=== PATIENT | female | born 1985 | race Caucasian/White ===

== ENCOUNTER → 2017-02-15 | Outpatient (CLI) | payer OTHER ==
[2017-02-15 12:56] LABS: Basophils # (A) 0.1 k/uL (0-0.2); Basophils % (A) 1 %; CHCM 33.6; Eosinophils # (A) 0.1 k/uL (0-0.7); Eosinophils % (A) 2 %; HCT 38.5 % (34.0-46.0); HDW 2.51; HGB 12.9 gm/dL (11.4-16.0); Luc # (Auto) 0.14; Luc % (Auto) 2; Lymphocytes # (A) 1.9 k/uL (1.0-4.8); Lymphocytes % (A) 31 %; MCHC 33.4 g/dL (31.0-37.0); MCV 83.8 fL (80.0-100.0); Monocytes # (A) 0.4 k/uL (0-1.0); Monocytes % (A) 6 %; Neutrophils # (A) 3.7 k/uL (1.3-7.7); Neutrophils % (A) 58 %; RBC 4.59 m/uL (3.80-5.40); RDW 13.1 % (11.5-15.5); WBC 6.3 k/uL (3.8-10.6); WBC (Perox) 6.36
[2017-02-15 13:02] LABS: Anion Gap 10 mmol/L; Blood Urea Nitrogen 11 mg/dL (7-17); Calcium 9.5 mg/dL (8.4-10.2); Carbon Dioxide 24 mmol/L (22-30); Chloride 106 mmol/L (98-107); Glucose 79 mg/dL (74-99); Non-African American GFR(MDRD) >60 (>60 ml/min/1.73 sqM); Potassium 3.8 mmol/L (3.5-5.1); Sodium 140 mmol/L (137-145)
== END | disposition home or self-care (01) ==
LOC: LABPAT 12:24
PROVIDERS: ATTEND Obstetrics & Gynecology
DX: Z01.812 Encounter for preprocedural laboratory examination (principal)
CPT/HCPCS: 36415; 80048; 85025

== ENCOUNTER 2017-02-25 06:01 | Observation (INO) | payer OTHER ==
[2017-02-23 15:26] VITALS: BMI 26.6
--- NOTE | 2017-02-24 16:36 | P.HPOB ---
History of Present Illness H&P Date: 02/24/17 Chief Complaint: dysmenorrhea and menorrhagia 31 year old presents for [facility] with da chandrika due to dysmenorrhea and menorrhagia. She has a known history of endometriosis. Review of Systems All systems: negative Constitutional: Denies chills, Denies fever Eyes: denies blurred vision, denies pain Ears, nose, mouth and throat: Denies headache, Denies sore throat Cardiovascular: Denies chest pain, Denies shortness of breath Respiratory: Denies cough Gastrointestinal: Denies abdominal pain, Denies diarrhea, Denies nausea, Denies vomiting Genitourinary: Denies dysuria, Denies hematuria Musculoskeletal: Denies myalgias Integumentary: Denies pruritus, Denies rash Neurological: Denies numbness, Denies weakness Psychiatric: Denies anxiety, Denies depression Endocrine: Denies fatigue, Denies weight change Past Medical History Past Medical History: Thyroid Disorder Additional Past Medical History / Comment(s): ENDOMETRIOSIS. OVARIAN CYSTS. PAINFUL, HEAVY MENSES. FREQ OM CHILD. History of Any Multi-Drug Resistant Organisms: None Reported Past Surgical History: Cholecystectomy Additional Past Surgical History / Comment(s): D&C, laparoscopy Past Anesthesia/Blood Transfusion Reactions: Family History of Problems w/ Anesthesia Additional Past Anesthesia/Blood Transfusion Reaction / Comment(s): MOTHER HAS PONV. Past Psychological History: No Psychological Hx Reported Smoking Status: Current some day smoker Past Alcohol Use History: Occasional Additional Past Alcohol Use History / Comment(s): SMOKES CIGAR OCC Past Drug Use History: None Reported - Past Family History Sister(s) Family Medical History: Cancer Medications and Allergies Home Medications Medication Instructions Recorded Confirmed Type Acetaminophen [Tylenol Extra 500 - 1,000 mg PO Q4-6H PRN 02/23/17 02/23/17 History Strength] Ibuprofen 800 mg PO Q6H PRN 02/23/17 02/23/17 History Levothyroxine Sodium [Synthroid] 88 mcg PO DAILY 02/23/17 02/23/17 History Allergies Allergy/AdvReac Type Severity Reaction Status Date / Time oseltamivir [From Tamiflu] AdvReac Abdominal Verified 02/23/17 14:57 Pain, bloody diarrhea Exam Osteopathic Statement: *. No significant issues noted on an osteopathic structural exam other than those noted in the History and Physical/Consult. Heart: RRR Lungs: CTAB Abdomen: soft, nontender Extremeties: neg ambrosio's Assessment and Plan (1) Dysmenorrhea Status: Acute (2) Menorrhagia Status: Acute Plan: 1. total laparoscopic hysterectomy with da chandrika
[~2017-02-25 06:01] MED LIST: ceFAZolin 2 GM in SODIUM CHLORIDE 0.9% 100 ML IVPB ONE
[2017-02-25] MEDS: ONDANSETRON 4 MG/2 ML VIAL IVP ONE ×2 (06:45→09:41)
[2017-02-25] MEDS ORDERED: LACTATED RINGERS 1,000 ML IV ONE ×2 (06:45→06:50)
[2017-02-25] MEDS ORDERED: DEXAMETHASONE SOD PHOSPHATE 10 MG/ML 1 ML VIAL IV ONE (06:47)
[2017-02-25] MEDS ORDERED: MIDAZOLAM 2 MG/2 ML VIAL ONE (07:14)
[2017-02-25] MEDS ORDERED: ROCURONIUM BROMIDE 10 MG/ML 10 ML VIAL IV ONE (07:14)
[2017-02-25] MEDS ORDERED: fentaNYL (PF) 50 MCG/ML 2 ML AMP ONE (07:14)
[2017-02-25] MEDS ORDERED: LIDOCAINE 1% INJ 10MG/ML (20 ML MDV) ONE (07:14)
[2017-02-25] MEDS ORDERED: HYDROmorphone (PF) 1 MG/ML ONE (07:14)
[2017-02-25] MEDS ORDERED: PROPOFOL 10 MG/ML 20 ML VIAL IV ONE (07:14)
[2017-02-25] MEDS ORDERED: NEOSTIGMINE 1 MG/ML 10 ML VIAL ONE (07:14)
[2017-02-25] MEDS ORDERED: KETOROLAC 30 MG/ML 1 ML VIAL ONE (07:14)
[2017-02-25] MEDS ORDERED: GLYCOPYRROLATE 0.2 MG/ML 2 ML VIAL ONE (07:14)
[2017-02-25] MEDS ORDERED: SUCCINYLCHOLINE CHLORIDE 100 MG/5 ML SYR IV ONE (07:14)
[2017-02-25] MEDS ORDERED: BUPIVACAINE (PF) 0.25% 30 ML VIAL SQ ONE ×2 (07:41)
--- NOTE | 2017-02-25 08:55 | P.OP ---
Date of Procedure: 02/25/17 Preoperative Diagnosis: 1. Dysmenorrhea 2. Menorrhagia Postoperative Diagnosis: 1. Dysmenorrhea 2. Menorrhagia 3. Endometrioma Procedure(s) Performed: Total laparoscopic hysterectomy with da Lissett, aspiration of bilateral ovarian cysts Implants: Anesthesia: DARIELAA Surgeon: Bonnie Velásquez Director Global #1: Osmar Neri Estimated Blood Loss (ml): 10 IV fluids (ml): 1,100 Urine output (ml): 100 Pathology: other (Uterus and cervix) Condition: stable Disposition: PACU Indications for Procedure: Operative Findings: Normal uterus, small serous cyst on the right ovary, endometrioma on the left ovary Description of Procedure: Patient taken the operating room where general anesthesia was obtained without difficulty. She is prepped and draped in normal sterile fashion dorsal lithotomy position, legs placed in the Genaro stirrups. Weighted speculum placed in the vagina and the anterior lip the cervix was grasped with single- tooth tenaculum. The uterus sounded to 10 cm and the cervix diameter was 3.5 cm. The appropriate manipulator tip and ring were placed on the Neli manipulator. The Neli manipulator was then placed in the uterus. Presley catheter was also placed. Attention was then turned to the abdomen and gloves were changed. A 5 mm supraumbilical incision was made the scalpel and a 5 mm optical trocar was placed under direct visualization. 10 cm to the right of this and 2 cm down a 5 mm incision was made and 8 mm da Lissett port was placed under direct visualization. Same measurements on the opposite side of the patient's abdomen, the 5 mm incision was made and 8 mm da Lissett port was placed under direct visualization. In the left upper quadrant a 10 mm incision was made and a 10 mm optical trocar was placed under direct visualization. The 5 mm optical trocar was then replaced with the 8 mm da Lissett camera port. The robot was docked on patient's right side. The camera was introduced and then the monopolar curved scissor and [place] bipolar placed under direct visualization. I broke scrub and went to the physician console. The left utero -ovarian ligament was cauterized with the Maryland bipolar and cut with monopolar curved scissors. The left round ligament was cauterized with the [place] bipolar and cut with monopolar curved scissors. The posterior leaf of the broad ligament was taken down using the monopolar curved scissors. Anterior leaf of the broad ligament was then taken down using the monopolar curved scissors. The uterine artery was cauterized with the Maryland bipolar and cut with monopolar curved scissors. The bladder flap was then started using the monopolar curved scissors. Attention was then turned to the right side of the patient's anatomy and the right utero-ovarian ligament was cauterized with the Maryland bipolar and cut with monopolar curved scissors. The right round ligament was cauterized with the Maryland bipolar and cut with monopolar curved scissors. Posterior leaf of the broad ligament was taken down using the monopolar curved scissors and the anterior leaf was taken down using the monopolar curved scissors. The uterine artery was cauterized the Maryland bipolar cut with monopolar curved scissors. The bladder flap was then finished on this side. Anterior colpotomy was made using the monopolar curved scissors. The rest of the uterus was from the vaginal cuff by following the ring around with the monopolar curved scissors through the uterosacral ligaments back to the anterior portion. Once the uterus and cervix were amputated they were pulled through the vaginal cuff. Hemostasis was assured. There was a small serous cyst on the right ovary that was punctured using the monopolar curved scissors. There was a large endometrioma on the left ovary that was also punctured using the monopolar curved scissors. This fluid was suctioned out. The instruments were changed for the Cardier forcep and the natalia suture cut. The vaginal cuff was then closed using O stratafix barbed suture in a running fashion. Hemostasis was again assured and the pelvis was irrigated. All instruments were removed from the abdomen and the robot was undocked. I scrubbed back in to perform a cystoscopy. There were jets from both ureteral orifices. The abdominal incisions were closed with 4-0 Vicryl in a subcuticular fashion. Patient tolerated the procedure well, sponge and instrument counts correct 2 and she was taken to recovery room in stable condition condition
[2017-02-25] MEDS: HYDROmorphone 1 MG/ML 1 ML SYRINGE IVP ONE ×2 (09:10→09:16)
[2017-02-25] MEDS ORDERED: IBUPROFEN 600 MG TAB PO PRN (09:53)
[2017-02-25] MEDS ORDERED: METOCLOPRAMIDE 5 MG/ML 2 ML VIAL IVP PRN (09:53)
[2017-02-25] MEDS ORDERED: diphenhydrAMINE 50 MG/ML 1 ML VIAL IVP PRN (09:53)
[2017-02-25] MEDS ORDERED: ONDANSETRON 4 MG/2 ML VIAL IVP PRN (09:53)
[2017-02-25] MEDS ORDERED: Acetaminophen-Codeine 300-30mg TAB PO PRN (09:53)
[2017-02-25] MEDS: Acetaminophen-Codeine 300-30mg TAB PO PRN ×3 (11:17→23:25)
[2017-02-25] MEDS: LEVOTHYROXINE 88 MCG TAB PO SCH (11:20)
[2017-02-25] MEDS: LACTATED RINGERS 1,000 ML IV SCH ×2 (11:47→20:14)
[2017-02-25] MEDS: SENNOSIDES-DOCUSATE SODIUM 1 EACH TAB PO SCH ×2 (12:46→21:03)
[2017-02-25] MEDS: KETOROLAC 30 MG/ML 1 ML VIAL IVP PRN ×2 (13:54→20:09)
[2017-02-25] MEDS: SIMETHICONE 80 MG CHEWABLE PO PRN (14:16)
[2017-02-25] MEDS ORDERED: HYDROmorphone 1 MG/ML 1 ML SYRINGE IM STA (14:23)
[2017-02-26] MEDS: LACTATED RINGERS 1,000 ML IV SCH (05:26)
[2017-02-26] MEDS: KETOROLAC 30 MG/ML 1 ML VIAL IVP PRN (05:27)
[2017-02-26] MEDS: LEVOTHYROXINE 88 MCG TAB PO SCH (06:34)
[2017-02-26 06:49] LABS: Basophils % (A) 0 %; CH 28.1; CHCM 32.8; Eosinophils # (A) 0.1 k/uL (0-0.7); Eosinophils % (A) 1 %; HDW 2.31; HGB 11.1 gm/dL (11.4-16.0); Luc # (Auto) 0.17; Luc % (Auto) 2; Lymphocytes # (A) 2.2 k/uL (1.0-4.8); Lymphocytes % (A) 22 %; MCH 28.1 pg (25.0-35.0); MCHC 32.7 g/dL (31.0-37.0); MCV 85.9 fL (80.0-100.0); Mean Platelet Volume 6.9; Monocytes # (A) 0.6 k/uL (0-1.0); Monocytes % (A) 6 %; Neutrophils # (A) 7.1 k/uL (1.3-7.7); Neutrophils % (A) 70 %; RBC 3.96 m/uL (3.80-5.40); RDW 13.5 % (11.5-15.5); WBC 10.2 k/uL (3.8-10.6); WBC (Perox) 11.11
--- NOTE | 2017-02-26 07:48 | P.DS ---
Providers Date of admission: 02/25/17 19:42 Expected date of discharge: 02/26/17 Attending physician: Bonnie Velásquez Primary care physician: Prosper Puentes - Discharge Diagnosis(es) (1) Dysmenorrhea Current Visit: Yes Status: Resolved (2) Menorrhagia Current Visit: Yes Status: Resolved (3) History of robot-assisted laparoscopic hysterectomy Current Visit: Yes Status: Acute Hospital Course: Patient presented for [facility] with da chandrika. She underwent this procedure without complication. Her postop course went very well. She is passing flatus and tolerating a regular diet. Pain is well controlled. She is ambulating and voiding without difficulty. Her incisions are C/D/I. She will be discharged home POD #1 in stable condition to follow up with me in 3 weeks. Plan - Discharge Summary New Discharge Prescriptions: New Acetaminophen-Codeine 300-30mg [Tylenol w/codeine #3] 2 each PO Q6HR PRN #30 tab PRN Reason: Severe Pain Ibuprofen [Motrin] 600 mg PO Q6HR PRN #30 tab PRN Reason: Mild Discomfort No Action Ibuprofen 800 mg PO Q6H PRN PRN Reason: Pain Levothyroxine Sodium [Synthroid] 88 mcg PO DAILY Acetaminophen [Tylenol Extra Strength] 500 - 1,000 mg PO Q4-6H PRN PRN Reason: Pain Discharge Medication List Acetaminophen [Tylenol Extra Strength] 500 - 1,000 mg PO Q4-6H PRN 02/23/17 [ History] Ibuprofen 800 mg PO Q6H PRN 02/23/17 [History] Levothyroxine Sodium [Synthroid] 88 mcg PO DAILY 02/23/17 [History] Acetaminophen-Codeine 300-30mg [Tylenol w/codeine #3] 2 each PO Q6HR PRN #30 tab 02/26/17 [Rx] Ibuprofen [Motrin] 600 mg PO Q6HR PRN #30 tab 02/26/17 [Rx] Follow up Appointment(s)/Referral(s): Bonnie Velásquez DO [Doctor of Osteopathic Medicine] - 3 Weeks
[2017-02-26] MEDS: SENNOSIDES-DOCUSATE SODIUM 1 EACH TAB PO SCH (08:21)
[2017-02-26] MEDS: Acetaminophen-Codeine 300-30mg TAB PO PRN (08:24)
[2017-02-26] MEDS: SIMETHICONE 80 MG CHEWABLE PO PRN (08:26)
[2017-02-26 08:33] VITALS: BP 121/70; PULSE 86; RESP 18; TEMP 97.4
== END 2017-02-26 10:38 | disposition home or self-care (01) ==
LOC: OR 06:01 → 6PED 08:33 → OR 19:42
PROVIDERS: ADMIT Obstetrics & Gynecology; ATTEND Obstetrics & Gynecology
DX: N92.0 Excessive and frequent menstruation with regular cycle (principal); N80.9 Endometriosis, unspecified; N83.209 Unspecified ovarian cyst, unspecified side; N94.6 Dysmenorrhea, unspecified; E07.9 Disorder of thyroid, unspecified; Z79.899 Other long term (current) drug therapy; Z90.49 Acquired absence of other specified parts of digestive tract; F17.200 Nicotine dependence, unspecified, uncomplicated
CPT/HCPCS: 58550; S2900; 81025; 85025; 86850; 86900; 86901; 88307; 88342

== ENCOUNTER 2017-03-12 22:22 | Emergency (ER) | payer OTHER ==
[2017-03-12 22:33] VITALS: RESP 18
[2017-03-12] MEDS ORDERED: SODIUM CHLORIDE 0.9% 1,000 ML IV ONE (23:56)
[2017-03-13 00:29] LABS: Basophils # (A) 0.1 k/uL (0-0.2); Basophils % (A) 1 %; CH 28.1; CHCM 33.9; Eosinophils # (A) 0.2 k/uL (0-0.7); Eosinophils % (A) 2 %; HCT 35.7 % (34.0-46.0); HDW 2.51; HGB 12.4 gm/dL (11.4-16.0); Luc # (Auto) 0.17; Luc % (Auto) 2; Lymphocytes # (A) 2.3 k/uL (1.0-4.8); Lymphocytes % (A) 30 %; MCH 28.9 pg (25.0-35.0); MCHC 34.7 g/dL (31.0-37.0); MCV 83.3 fL (80.0-100.0); Mean Platelet Volume 7.2; Monocytes # (A) 0.4 k/uL (0-1.0); Monocytes % (A) 6 %; Neutrophils # (A) 4.7 k/uL (1.3-7.7); Neutrophils % (A) 60 %; RBC 4.29 m/uL (3.80-5.40); WBC 7.9 k/uL (3.8-10.6); WBC (Perox) 8.13
[2017-03-13 00:49] LABS: ALT 26 U/L (9-52); AST 15 U/L (14-36); Alkaline Phosphatase 109 U/L (38-126); Anion Gap 12 mmol/L; Blood Urea Nitrogen 15 mg/dL (7-17); Calcium 9.8 mg/dL (8.4-10.2); Carbon Dioxide 21 mmol/L (22-30); Chloride 109 mmol/L (98-107); Glucose 86 mg/dL (74-99); Non-African American GFR(MDRD) >60 (>60 ml/min/1.73 sqM); Potassium 3.8 mmol/L (3.5-5.1); Sodium 142 mmol/L (137-145); Total Bilirubin 0.3 mg/dL (0.2-1.3); Total Protein 6.9 g/dL (6.3-8.2)
[2017-03-13 00:50] LABS: INR 1.1 (<1.1); Partial Thromboplastin Time 25.9 sec (22.0-30.0); Prothrombin Time 11.2 sec (9.0-12.0)
--- NOTE | 2017-03-13 01:11 | ED ---
Female Urogenital HPI - General Chief complaint: Vaginal Bleeding Stated complaint: vag bleed,post hysterectomy Time Seen by Provider: 03/12/17 22:48 Source: patient, RN notes reviewed, old records reviewed Mode of arrival: ambulatory Limitations: no limitations - History of Present Illness Initial comments: This is a 31 year old female 2 weeks post laproscopic hysterectomy by Dr. Velásquez with CC of passing one heavy clot today, and more significant vaginal bleeding than she has had in the past. She reports she was walking around more frequently yesterday and today. Denies any abdominal pain, denies light headedness. She did call vocational nurse lvn surgeon, whom recommended coming for evaluation of hemoglobin. - Related Data Home Medications Medication Instructions Recorded Confirmed Ibuprofen 800 mg PO Q6H PRN 02/23/17 03/12/17 Levothyroxine Sodium [Synthroid] 88 mcg PO DAILY 02/23/17 03/12/17 Allergies Allergy/AdvReac Type Severity Reaction Status Date / Time oseltamivir [From Tamiflu] AdvReac Severe Abdominal Verified 03/12/17 23:11 Pain, bloody diarrhea Review of Systems ROS Statement: Those systems with pertinent positive or pertinent negative responses have been documented in the HPI. ROS Other: All systems not noted in ROS Statement are negative. Constitutional: Denies: fever, chills Eyes: Denies: eye pain ENT: Denies: ear pain Respiratory: Denies: cough, dyspnea Cardiovascular: Denies: chest pain, palpitations Endocrine: Denies: fatigue Gastrointestinal: Denies: abdominal pain Genitourinary: Denies: urgency, dysuria Musculoskeletal: Reports: as per HPI. Denies: back pain Neurological: Denies: weakness Psychiatric: Denies: anxiety Past Medical History Past Medical History: Thyroid Disorder Additional Past Medical History / Comment(s): ENDOMETRIOSIS. OVARIAN CYSTS. FREQ OM CHILD. History of Any Multi-Drug Resistant Organisms: None Reported Past Surgical History: Cholecystectomy, Hysterectomy Additional Past Surgical History / Comment(s): D&C, laparoscopy. 02/25/2017 Robotic Hysterectomy Past Anesthesia/Blood Transfusion Reactions: Family History of Problems w/ Anesthesia Additional Past Anesthesia/Blood Transfusion Reaction / Comment(s): MOTHER HAS PONV. Past Psychological History: No Psychological Hx Reported Smoking Status: Never smoker Past Alcohol Use History: None Reported Past Drug Use History: None Reported - Past Family History Sister(s) Family Medical History: Cancer General Exam - General Exam Comments Initial Comments: Pleasant 31 year old female, no distress. Limitations: no limitations General appearance: alert, in no apparent distress Head exam: Present: atraumatic, normocephalic, normal inspection Eye exam: Present: normal appearance, PERRL, EOMI. Absent: scleral icterus, conjunctival injection, periorbital swelling ENT exam: Present: normal exam, mucous membranes moist Neck exam: Present: normal inspection. Absent: tenderness, meningismus, lymphadenopathy Respiratory exam: Present: normal lung sounds bilaterally. Absent: respiratory distress, wheezes, rales, rhonchi, stridor Cardiovascular Exam: Present: regular rate, normal rhythm, normal heart sounds. Absent: systolic murmur, diastolic murmur, rubs, gallop, clicks GI/Abdominal exam: Present: soft, normal bowel sounds. Absent: distended, tenderness, guarding, rebound, rigid External exam: Present: normal external exam Speculum exam: Present: other (Patient had tenderness with full speculum exam, no significant clots or bleeding from vaginal vault. There is some minor bleeding. ). Absent: normal speculum exam By manual exam: Absent: cervical motion tenderness, adnexal tenderness Extremities exam: Present: normal inspection, full ROM, normal capillary refill. Absent: tenderness, pedal edema, joint swelling, calf tenderness Back exam: Present: normal inspection Course Vital Signs 03/12/17 03/13/17 22:30 01:43 Temperature 97.5 F L 98.1 F Pulse Rate 83 81 Respiratory 18 18 Rate Blood Pressure 132/77 118/61 O2 Sat by Pulse 100 98 Oximetry Medical Decision Making - Medical Decision Making This is a 31 year old female 2 weeks post laproscopic hysterectomy by Dr. Velásquez with CC of passing one heavy clot today, and more significant vaginal bleeding than she has had in the past. She reports she was walking around more frequently yesterday and today. Denies any abdominal pain, denies light headedness. She did call vocational nurse lvn surgeon, whom recommended coming for evaluation of hemoglobin. Pt appears well, not pale. Hemoglobin is stable at 12.4. Patient was mildly tender with speculum exam, no significant clots or heavy bleeding noted. Disucssed follow up with BGYN and to rest and remain hydrated. Return parameters discussed. - Lab Data Result diagrams: 03/13/17 00:07 07/01/17 00:07 Lab Results 03/13/17 03/13/17 03/13/17 Range/Units 00:07 00:07 00:07 WBC 7.9 (3.8-10.6) k/uL RBC 4.29 (3.80-5.40) m/uL Hgb 12.4 (11.4-16.0) gm/dL Hct 35.7 (34.0-46.0) % MCV 83.3 (80.0-100.0) fL MCH 28.9 (25.0-35.0) pg MCHC 34.7 (31.0-37.0) g/dL RDW 13.0 (11.5-15.5) % Plt Count 334 (150-450) k/uL Neutrophils % 60 % Lymphocytes % 30 % Monocytes % 6 % Eosinophils % 2 % Basophils % 1 % Neutrophils # 4.7 (1.3-7.7) k/uL Lymphocytes # 2.3 (1.0-4.8) k/uL Monocytes # 0.4 (0-1.0) k/uL Eosinophils # 0.2 (0-0.7) k/uL Basophils # 0.1 (0-0.2) k/uL PT 11.2 (9.0-12.0) sec INR 1.1 (<1.1) APTT 25.9 (22.0-30.0) sec Sodium 142 (137-145) mmol/L Potassium 3.8 (3.5-5.1) mmol/L Chloride 109 H (98-107) mmol/L Carbon Dioxide 21 L (22-30) mmol/L Anion Gap 12 mmol/L BUN 15 (7-17) mg/dL Creatinine 0.60 (0.52-1.04) mg/dL Est GFR (MDRD) Af Amer >60 (>60 ml/min/1.73 sqM) Est GFR (MDRD) Non-Af >60 (>60 ml/min/1.73 sqM) Glucose 86 (74-99) mg/dL Calcium 9.8 (8.4-10.2) mg/dL Total Bilirubin 0.3 (0.2-1.3) mg/dL AST 15 (14-36) U/L ALT 26 (9-52) U/L Alkaline Phosphatase 109 (38-126) U/L Total Protein 6.9 (6.3-8.2) g/dL Albumin 4.2 (3.5-5.0) g/dL Disposition Clinical Impression: Vaginal bleeding, History of hysterectomy Disposition: HOME SELF-CARE Condition: Good Instructions: Menstruation (ED) Additional Instructions: Patient has a follow-up with her TRAFFIC COUNTER on Wednesday. Monitor for any signs of lightheadedness or severe further bleeding. Patient needs to rest and increase fluids. Return to the emergency department if any alarming signs or symptoms occur. Referrals: Prosper Puentes DO [Primary Care Provider] - 1-2 days Time of Disposition: 01:11
[2017-03-13 01:44] VITALS: BP 118/61; PULSE 81; TEMP 98.1
== END 2017-03-13 01:44 | disposition home or self-care (01) ==
LOC: EC 22:22
DX: N93.9 Abnormal uterine and vaginal bleeding, unspecified (principal); E07.9 Disorder of thyroid, unspecified; Z87.42 Personal history of other diseases of the female genital tract; Z90.49 Acquired absence of other specified parts of digestive tract; Z90.710 Acquired absence of both cervix and uterus; Z88.8 Allergy status to other drugs, medicaments and biological substances; Z79.899 Other long term (current) drug therapy
CPT/HCPCS: 36415; 80053; 85025; 85610; 85730; 96360; 96361; 99284

== ENCOUNTER 2024-03-12 17:00 | Emergency (ER) | payer OTHER ==
[2024-03-12 17:03] VITALS: TEMP 98
[2024-03-12] MEDS: SODIUM CHLORIDE 0.9% 1,000 ML IV STA (17:20)
[2024-03-12] MEDS: KETOROLAC 15 MG/ML 1 ML VIAL IVP STA (17:20)
[2024-03-12 17:35] VITALS: RESP 16
[2024-03-12 17:36] LABS: African American GFR (CKD) >90 (>60 ml/min/1.73 sqM); Anion Gap 4 mmol/L; Blood Urea Nitrogen 13 mg/dL (7-17); Carbon Dioxide 24 mmol/L (22-30); Chloride 109 mmol/L (98-107); Glucose 95 mg/dL (74-99); Non-African American GFR(CKD) >90 (>60 ml/min/1.73 sqM); Potassium 4.2 mmol/L (3.5-5.1); Sodium 137 mmol/L (137-145)
[2024-03-12 17:40] LABS: Appearance,Urine Cloudy (Clear); Bacteria,Urine Occasional /hpf; Bilirubin,Urine Negative (Negative); Blood,Urine Large (Negative); Color,Urine Light Red; Glucose,Urine (UA) Negative (Negative); Ketones,Urine Negative (Negative); Leukocyte Esterase,Urine Small (Negative); Mucus,Urine Few /hpf; Nitrite,Urine Negative (Negative); Protein,Urine 1+ (Negative); RBC,Urine >182 /hpf (0-5); Specific Gravity,Urine 1.024 (1.001-1.035); Squamous Epithelial Cell,Urine 13 /hpf (0-4); Urobilinogen,Urine <2.0 mg/dL (<2.0); WBC,Urine 9 /hpf (0-5)
[2024-03-12 17:43] LABS: Basophils # (A) 0.1 k/uL (0-0.2); Basophils % (A) 1 %; Eosinophils # (A) 0.2 k/uL (0-0.7); Eosinophils % (A) 2 %; HCT 39.4 % (34.0-46.0); HGB 13.6 gm/dL (11.4-16.0); Lymphocytes # (A) 2.2 k/uL (1.0-4.8); Lymphocytes % (A) 22 %; MCHC 34.6 g/dL (31.0-37.0); MCV 86.7 fL (80.0-100.0); Mean Platelet Volume 8.3; Monocytes # (A) 0.7 k/uL (0-1.0); Monocytes % (A) 7 %; Neutrophils # (A) 6.7 k/uL (1.3-7.7); Neutrophils % (A) 67 %; Platelet Count 319 k/uL (150-450); RBC 4.55 m/uL (3.80-5.40); RDW 12.6 % (11.5-15.5)
--- NOTE | 2024-03-12 18:33 | CT ---
EXAMINATION TYPE: CT abdomen pelvis wo con CT DLP: 612.7 mGycm, Automated exposure control for dose reduction was used. DATE OF EXAM: 03/12/2024 5:34 PM COMPARISON: None CLINICAL INDICATION:Female, 38 years old with history of left flank pain; Left flank pain x yesterday TECHNIQUE: Axial CT abdomen pelvis wo con;Sagittal and coronal reformats were created on a separate workstation. Contrast used: mL of , (none if empty) Oral contrast used: without Oral Contrast (none if empty) FINDINGS: LOWER CHEST: 3 mm right lower lobe pulmonary nodule. ABDOMEN LIVER: Unremarkable GALLBLADDER AND BILE DUCTS: Unremarkable. PANCREAS: Unremarkable. SPLEEN: Unremarkable. ADRENAL GLANDS: Unremarkable. KIDNEYS AND URETERS: Mild left hydronephrosis secondary obstructing 6 mm calculus at the ureteropelvi c junction. Nonobstructing right 2 mm calculus. PELVIS BLADDER: Unremarkable REPRODUCTIVE: Unremarkable. ABDOMEN & PELVIS STOMACH AND BOWEL: No evidence of bowel obstruction. Appendix is normal. PERITONEUM/RETROPERITONEUM: No evidence of pneumoperitoneum or free fluid. Mild clem mesentery. VASCULATURE: No evidence of aortic aneurysm. MUSCULOSKELETAL: No acute osseous abnormalities LYMPH NODES: No gross evidence for lymphadenopathy. SOFT TISSUE/ABDOMINAL WALL: Fat-containing umbilical hernia. IMPRESSION: 1. Mild left hydronephrosis secondary obstructing 6 mm calculus at the ureteropelvic junction. Nonob structing right renal 2 mm calculus. 2. 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 3. Right lower lobe 3 mm pulmonary nodule pulmonary nodules measuring less than 6 mm. Incidentally d etected nodules of this size are generally considered benign in individuals without concomitant risk factors such as smoking history or other risk factors for malignancy. Followup imaging is generally n ot performed, in accordance with Fleischner Society guidelines. In high-risk patients, a [address] thorax can be considered.
--- NOTE | 2024-03-12 19:00 | ED ---
General Adult HPI - General Chief complaint: Urogenital Stated complaint: blood in urine, abd pain Time Seen by Provider: 03/12/24 17:05 Source: patient, RN notes reviewed, old records reviewed Mode of arrival: ambulatory Limitations: no limitations - History of Present Illness Initial comments: Patient is a 38-year-old female presents emergency department complaining of left-sided lower back and flank pain. Is also noticed some hematuria. Symptoms started yesterday. No significant nausea. No history of kidney stone. History of hysterectomy. States she is not . Denies any change in stooling. Denies any chest pain or shortness of breath. Denies any fevers. Presents for further evaluation at this time. States the pain radiates from her left lower back around her flank towards her groin. - Related Data Home Medications Medication Instructions Recorded Confirmed Ibuprofen 800 mg PO Q6H PRN 02/23/17 03/12/17 Levothyroxine Sodium [Synthroid] 88 mcg PO DAILY 02/23/17 03/12/17 Previous Rx's Medication Instructions Recorded Tamsulosin [Flomax] 0.4 mg PO DAILY 14 Days #14 cap 03/12/24 Allergies Allergy/AdvReac Type Severity Reaction Status Date / Time oseltamivir [From Tamiflu] AdvReac Severe Abdominal Verified 03/12/24 17:03 Pain, bloody diarrhea Review of Systems ROS Statement: Those systems with pertinent positive or pertinent negative responses have been documented in the HPI. Review of Systems: CONST: Denies fever EYES: Denies blurry vision ENT: Denies nasal congestion C/V: Denies Chest pain RESP: Denies shortness of breath GI: Endorses abdominal pain : Denies dysuria SKIN: Denies rash. MSK: Denies joint pain. NEURO: Denies headache ROS Other: All systems not noted in ROS Statement are negative. Past Medical History Past Medical History: Thyroid Disorder Additional Past Medical History / Comment(s): ENDOMETRIOSIS. OVARIAN CYSTS. FREQ OM CHILD. History of Any Multi-Drug Resistant Organisms: None Reported Past Surgical History: Cholecystectomy, Hysterectomy Additional Past Surgical History / Comment(s): D&C, laparoscopy. 02/25/2017 Robotic Hysterectomy Past Anesthesia/Blood Transfusion Reactions: Family History of Problems w/ Anesthesia Additional Past Anesthesia/Blood Transfusion Reaction / Comment(s): MOTHER HAS PONV. Past Psychological History: No Psychological Hx Reported Smoking Status: Never smoker Past Alcohol Use History: Occasional Past Drug Use History: None Reported - Past Family History Sister(s) Family Medical History: Cancer General Exam - General Exam Comments Initial Comments: General: Appears in mild distress secondary to pain HEAD: Normal with no signs of head trauma. EYES: PERRLA ENT: Hearing grossly intact, normal oropharynx. RESPIRATORY: Clear breath sounds bilaterally. No wheezes, rales, or rhonchi. C/V: Regular rate and rhythm. S1 and S2 auscultated, no edema, peripheral pulses 2+ and intact throughout ABD: Left lower back pain with left flank pain on palpation. Abdomen is otherwise soft, nontender, nondistended. No guarding. No rebound tenderness. No peritoneal signs. EXT: no obvious deformity SKIN: No rashes or lesions observed on exposed skin. NEURO: Alert and oriented x 4. Limitations: no limitations Course Vital Signs 03/12/24 03/12/24 03/12/24 17:01 17:03 19:12 Temperature 98.0 F Pulse Rate 83 85 86 Respiratory 17 16 16 Rate Blood Pressure 123/78 130/68 130/80 O2 Sat by Pulse 99 98 98 Oximetry Medical Decision Making - Medical Decision Making Was pt. sent in by a medical professional or institution (, PA, [facility]IS[employer] CHALKER, urgent care, hospital, or [facility]...) When possible be specific @ -No Did you speak to anyone other than the patient for history (EMS, parent, family, police, friend...)? What history was obtained from this source @ -No Did you review nursing and triage notes (agree or disagree)? Why? @ -I reviewed and agree with nursing and triage notes Were old charts reviewed (outside hosp., previous admission, EMS record, old EKG, old radiological studies, urgent care reports/EKG's, [facility] records)? Report findings @ -No old charts were reviewed Differential Diagnosis (chest pain, altered mental status, abdominal pain women, abdominal pain men, vaginal bleeding, weakness, fever, dyspnea, syncope, headache, dizziness, GI bleed, back pain, seizure, CVA, palpatations, mental health, musculoskeletal)? @ -Differential Abdominal Pain Women: Appendicitis, Cholecystitis, diverticulosis, ischemic bowel, pancreatitis, hepatitis, UTI, gastroenteritis, AAA, incarcerated hernia, bowel obstruction, constipation, inflammatory bowel, hepatitis, peptic ulcer disease, splenic infar ction, perforated viscus, vulvitis, ovarian torsion, PID, kidney stone, placenta abruption, this is not meant to be an all-inclusive list EKG interpreted by me (3pts min.). @ -None done X-rays interpreted by me (1pt min.). @ -None done CT interpreted by me (1pt min.). @ -CT abdomen pelvis reveals left-sided UPJ ureteral lithiasis that is 6 mm inside with mild left-sided hydronephrosis. Patient also has a pulmonary nodule seen. U/S interpreted by me (1pt. min.). @ -None done What testing was considered but not performed or refused? (CT, X-rays, U/S, labs)? Why? @ -None What meds were considered but not given or refused? Why? @ -None Did you discuss the management of the patient with other professionals (professionals i.e. , PA, [employer] CHALKER, lab, RT, psych nurse, social work coordinator, top carrier, teacher, child support case officer, case management manager)? Give summary @ -No Was smoking cessation discussed for >3mins.? @ -No Was critical care preformed (if so, how long)? @ -No Were there social determinants of health that impacted care today? How? (Homelessness, low income, unemployed, alcoholism, drug addiction, transportation, low edu. Level, literacy, decrease access to med. care, fci, rehab)? @ -No Was there de-escalation of care discussed even if they declined (Discuss DNR or withdrawal of care, Hospice)? DNR status @ -No What co-morbidities impacted this encounter? (DM, HTN, Smoking, COPD, CAD, Ca ncer, CVA, ARF, Chemo, Hep., AIDS, mental health diagnosis, sleep apnea, morbid obesity)? @ -None Was patient admitted / discharged? Hospital course, mention meds given and route, prescriptions, significant lab abnormalities, going to OR and other pertinent info. @ -Patient presents with left-sided flank pain. We will workup for kidney stone. Vital signs within acceptable limits. Symptomatically treat with IV fluids, analgesia medications. Laboratory studies remarkable for hematuria. Otherwise unremarkable. CT imaging reveals a pulmonary nodule as well as a UPJ 6 mm kidney stone. On reevaluation, patient is resting comfortably. We discussed her workup. She will be discharged home on Flomax, as well as a starter packs of Tylenol 3, Zofran. She will be given a strainer. We discussed the pulmonary nodule as well and the need to obtain repeat imaging in 3 to 6 months. She was in agreement this plan. I will provide the patient with a prescription for Flomax. I instructed the patient to follow up with their PCP in the next 1-3 days. I provided contact information for follow up with urology. I explained that the patient should return to the emergency department if they experience any worsening symptoms. Strict return precautions were discussed with the patient. The patient expressed understanding of these instructions. I answered all questions that the patient had. The patient was discharged home in good condition with their prescriptions and follow up information. Undiagnosed new problem with uncertain prognosis? @ -No Drug Therapy requiring intensive monitoring for toxicity (Heparin, Nitro, Insulin, Cardizem)? @ -No Were any procedures done? @ -No Diagnosis/symptom? @ -Left-sided ureterolithiasis Acute, or Chronic, or Acute on Chronic? @ -Acute Uncomplicated (without systemic symptoms) or Complicated (systemic symptoms)? @ -Complicated Side effects of treatment? @ -No Exacerbation, Progression, or Severe Exacerbation? @ -No Poses a threat to life or bodily function? How? (Chest pain, [place], [place], pneumonia, PE, COPD, DKA, ARF, appy, cholecystitis, CVA, Diverticulitis, Homicidal, Suicidal, threat to staff... and all critical care pts) @ -Unlikely Diagnosis/symptom? @ -Pulmonary nodule Acute, or Chronic, or Acute on Chronic? @ -Acute Uncomplicated (without systemic symptoms) or Complicated (systemic symptoms)? @ -Uncomplicated Side effects of treatment? @ -None Exacerbation, Progression, or Severe Exacerbation] @ -No Poses a threat to life or bodily function? @ -Unknown - Lab Data Result diagrams: 03/12/24 17:14 03/12/24 17:14 Lab Results 03/12/24 03/12/24 03/12/24 Range/Units 17:14 17:14 17:14 WBC 10.0 (3.8-10.6) k/uL RBC 4.55 (3.80-5.40) m/uL Hgb 13.6 (11.4-16.0) gm/dL Hct 39.4 (34.0-46.0) % MCV 86.7 (80.0-100.0) fL MCH 30.0 (25.0-35.0) pg MCHC 34.6 (31.0-37.0) g/dL RDW 12.6 (11.5-15.5) % Plt Count 319 (150-450) k/uL MPV 8.3 Neutrophils % 67 % Lymphocytes % 22 % Monocytes % 7 % Eosinophils % 2 % Basophils % 1 % Neutrophils # 6.7 (1.3-7.7) k/uL Lymphocytes # 2.2 (1.0-4.8) k/uL Monocytes # 0.7 (0-1.0) k/uL Eosinophils # 0.2 (0-0.7) k/uL Basophils # 0.1 (0-0.2) k/uL Sodium 137 (137-145) mmol/L Potassium 4.2 (3.5-5.1) mmol/L Chloride 109 H (98-107) mmol/L Carbon Dioxide 24 (22-30) mmol/L Anion Gap 4 mmol/L BUN 13 (7-17) mg/dL Creatinine 0.59 (0.52-1.04) mg/dL Est GFR (CKD-EPI)AfAm >90 (>60 ml/min/1.73 sqM) Est GFR (CKD-EPI)NonAf >90 (>60 ml/min/1.73 sqM) Glucose 95 (74-99) mg/dL Calcium 10.0 (8.4-10.2) mg/dL Urine Color Light Red Urine Appearance Cloudy H (Clear) Urine pH 6.0 (5.0-8.0) Ur Specific [place] 1.024 (1.001-1.035) Urine Protein 1+ H (Negative) Urine Glucose (UA) Negative (Negative) Urine Ketones Negative (Negative) Urine Blood Large H (Negative) Urine Nitrite Negative (Negative) Urine Bilirubin Negative (Negative) Urine Urobilinogen <2.0 (<2.0) mg/dL Ur Leukocyte Esterase Small H (Negative) Urine RBC >182 H (0-5) /hpf Urine WBC 9 H (0-5) /hpf Ur Squamous Epith Cells 13 H (0-4) /hpf Urine Bacteria Occasional H (None) /hpf Urine Mucus Few H (None) /hpf Disposition Clinical Impression: Ureterolithiasis, Pulmonary nodule Disposition: HOME SELF-CARE Condition: Fair Instructions (If sedation given, give patient instructions): Kidney Stones ( ED), Ureteral Stones (ED) Additional Instructions: follow up imaging in 3-6 months for pulmonary nodule. Prescriptions: Tamsulosin [Flomax] 0.4 mg PO DAILY 14 Days #14 cap Is patient prescribed a controlled substance at d/c from ED?: No Referrals: Prosper Puentes DO [Primary Care Provider] - 1-2 days Travis Rosen MD [STAFF PHYSICIAN] - 1-2 days Time of Disposition: 18:58
[2024-03-12] MEDS: TAMSULOSIN 0.4 MG CAP.ER.24H PO STA (19:09)
[2024-03-12] MEDS: ACET/COD 300 MG/30 MG STARTER PACK 6 TAB BTL PO STA (19:10)
[2024-03-12] MEDS: ONDANSETRON 4 MG ODT STARTER PACK 2 TAB BTL PO STA (19:10)
[2024-03-12 19:12] VITALS: BP 130/80; PULSE 86
== END 2024-03-12 19:12 | disposition home or self-care (01) ==
LOC: EC 17:00
DX: N13.2 Hydronephrosis with renal and ureteral calculous obstruction (principal); R91.1 Solitary pulmonary nodule; Z88.8 Allergy status to other drugs, medicaments and biological substances
CPT/HCPCS: 36415; 80048; 85025; 81001; 74176; 99284; 96374; 96361; J1885; S0119

== ENCOUNTER 2024-03-27 08:11 | Day surgery (SDC) | payer OTHER ==
--- NOTE | 2024-03-23 07:55 | P.GSHP ---
History of Present Illness H&P Date: 03/23/24 Chief Complaint: Left renal colic The patient is a 38-year-old white female with no prior history of urolithiasis. She recently presented with left flank pain radiating to the left lower abdomen. CT scan showed mild left hydronephrosis due to a 6 mm left UPJ calculus. A nonobstructing 2 mm right renal calculus was also seen. She was offered the options of medical expulsion therapy, extracorporal shockwave lithotripsy (ESWL), and ureteroscopic removal of the calculus. She has elected to undergo the latter. - Constitutional Constitutional: Denies chills, Denies fever - Gastrointestinal Gastrointestinal: Denies nausea, Denies vomiting - Genitourinary (Female) Genitourinary: Reports flank pain, Reports hematuria, Reports kidney stones, Denies dysuria Past Medical History Past Medical History: Thyroid Disorder Additional Past Medical History / Comment(s): ENDOMETRIOSIS. OVARIAN CYSTS. FREQ OM CHILD. Kidney stones. History of Any Multi-Drug Resistant Organisms: None Reported Past Surgical History: Cholecystectomy, Hysterectomy Additional Past Surgical History / Comment(s): D&C, laparoscopy. 02/25/2017 Robotic Hysterectomy Past Anesthesia/Blood Transfusion Reactions: Family History of Problems w/ Anesthesia Additional Past Anesthesia/Blood Transfusion Reaction / Comment(s): MOTHER HAS PONV. Smoking Status: Never smoker - Past Family History Sister(s) Family Medical History: Cancer Medications and Allergies Home Medications Medication Instructions Recorded Confirmed Type Ibuprofen 800 mg PO Q6H PRN 02/23/17 03/22/24 History Levothyroxine Sodium [Synthroid] 88 mcg PO DAILY 02/23/17 03/22/24 History Tamsulosin [Flomax] 0.4 mg PO DAILY 14 Days #14 cap 03/12/24 03/22/24 Rx Acetaminophen Tab [Tylenol Tab] 500 mg PO Q4H PRN 03/22/24 03/22/24 History HYDROcodone/APAP 5-325MG [[place] 1 tab PO Q4HR PRN 03/22/24 03/22/24 History 5-325] Ketorolac [Toradol] 10 mg PO Q6HR 03/22/24 03/22/24 History Allergies Allergy/AdvReac Type Severity Reaction Status Date / Time oseltamivir [From Tamiflu] AdvReac Severe Abdominal Verified 03/22/24 12:39 Pain, bloody diarrhea Surgical - Exam - General well developed, well nourished, no distress - Respiratory normal respiratory effort - Abdomen Abdomen: soft, tender (Mild left lower quadrant tenderness), no guarding, no rigid, no rebound - Psychiatric oriented to time, oriented to person, oriented to place, speech is normal, memory intact Results - Imaging CT scan - abdomen: report reviewed, image reviewed Assessment and Plan (1) Calculus of kidney Status: Acute Code(s): N20.0 - CALCULUS OF KIDNEY SNOMED Code(s): 33279053 Plan: Cystoscopy, left retrograde pyelogram, left ureteroscopy with Holmium laser lithotripsy and stone basketing, left ureteral stent insertion. The procedure has been reviewed in detail with the patient. She has been made aware of potential risks, which include anesthesia, bleeding, infection, inability to remove the calculus, and ureteral injury. She is also aware of the possible need for a secondary procedure.
[~2024-03-27 08:11] MED LIST changes: +HYDROmorphone 0.5 MG/0.5 ML SYRINGE IVP PRN; +LACTATED RINGERS 1,000 ML IV SCH; +LIDOCAINE 1% (10MG/ML) FOR IV START INTRADERMA PRN; -ceFAZolin 2 GM in SODIUM CHLORIDE 0.9% 100 ML IVPB ONE; +droPERidol 5 MG/2 ML VIAL IVP ONE
[2024-03-27] MEDS: LACTATED RINGERS 1,000 ML IV SCH (08:57)
[2024-03-27] MEDS: IV FLUID CONTINUATION 1,000 ML IV ONE (08:57)
[2024-03-27] MEDS: DEXAMETHASONE SOD PHOSPHATE 4 MG/ML 1 ML VIAL IV ONE (08:58)
[2024-03-27] MEDS: ONDANSETRON 4 MG/2 ML VIAL IVP ONE (08:58)
--- NOTE | 2024-03-27 09:44 | XR ---
EXAMINATION TYPE: XR KUB DATE OF EXAM: 03/27/2024 COMPARISON: None INDICATION: Left kidney stone TECHNIQUE: Supine view abdomen FINDINGS: There is a normal colonic bowel gas pattern. Postcholecystectomy clips are present. Psoas margins are normal. No organomegaly is present. There is a 0.6 cm calcification in proximal left hemipelvis. The distal left ureteral stone may be pr esent. No renal stones are identified. IMPRESSION: 1. 0.6 cm left distal ureteral stone
[2024-03-27] MEDS: IOPAMIDOL-370 100ML BTL MISCELLANE ONE (09:58)
[2024-03-27] MEDS ORDERED: diphenhydrAMINE 50 MG/ML 1 ML VIAL ONE (10:48)
[2024-03-27] MEDS ORDERED: MIDAZOLAM 2 MG/2 ML VIAL ONE (10:48)
[2024-03-27] MEDS ORDERED: LIDOCAINE 1% INJ 10MG/ML (20 ML MDV) ONE (10:48)
[2024-03-27] MEDS ORDERED: PROPOFOL 10 MG/ML 20 ML VIAL IV ONE (10:48)
[2024-03-27] MEDS ORDERED: fentaNYL (PF) 50 MCG/ML 2 ML AMP ONE (10:48)
[2024-03-27] MEDS ORDERED: SUCCINYLCHOLINE CHLORIDE 200 MG/10 ML VIAL IV ONE (10:48)
[2024-03-27 12:00] VITALS: TEMP 97.2
--- NOTE | 2024-03-27 12:08 | P.OP ---
Date of Procedure: 03/27/24 Preoperative Diagnosis: Left ureteral calculus Postoperative Diagnosis: Same Procedure(s) Performed: Cystoscopy, left ureteroscopy with Holmium laser lithotripsy Anesthesia: AAMIR Surgeon: Travis Rosen Estimated Blood Loss (ml): 0 IV fluids (ml): 800 Pathology: other (Left ureteral calculus fragments, sent for chemical analysis.) Condition: stable Disposition: PACU Indications for Procedure: The patient is a 38-year-old white female with no prior history of urolithiasis. She recently presented with left flank pain radiating to the left lower abdomen. CT scan showed mild left hydronephrosis due to a 6 mm left UPJ calculus. A nonobstructing 2 mm right renal calculus was also seen. She was offered the options of medical expulsion therapy, extracorporal shockwave lithotripsy (ESWL), and ureteroscopic removal of the calculus. She has elected to undergo the latter. Preoperative KUB x-ray shows that the calculus has migrated to the left distal ureter. Operative Findings: 6 mm calculus located near the level of the iliac vessels, fragmented and removed completely. Description of Procedure: The patient was taken to the operating room and placed in the dorsolithotomy position, with legs supported in Genaro stirrups. The external genitalia was prepped and draped sterilely. The 30 lens was used to introduce the 21-Prydeinig Silvestre cystoscopic sheath through the urethra and into the bladder under direct vision. The bladder was examined in its entirety. Both ureteral orifices were normal anatomic location and configuration. No tumors or foreign bodies were seen. The Silvestre semirigid ureteroscope was advanced into the bladder, and the left ureteral orifice was cannulated. The ureteroscope was slowly advanced under direct vision, up to the calculus which was located at the level of the iliac vessels. The 272 micron Holmium laser probe was passed through the ureteroscope, and lithotripsy was performed. The calculus was dense, likely composed of calcium oxalate monohydrate. Calculus fragments migrated distally into the bladder. Final inspection of the ureter showed no residual calculus fragments, as the ureteroscope was advanced up to the left proximal ureter, and there was no evidence of ureteral trauma. There was no significant ureteral edema, and therefore the decision was made not to leave a stent. After removing the ureteroscope, the cystoscope was replaced into the bladder. The bladder was emptied and calculus fragments were drained from the bladder. They were saved and sent for chemical analysis. The cystoscope was removed and the procedure was terminated. The patient tolerated the procedure well and was taken to the recovery room in stable condition. [place] [place] Report: Procedure Acuity: Urgent Stone Size and Location: 6 mm, left distal ureter Ureteral Dilation: No Ureteral Access Sheath Used: No Stone Sent for Analysis: Yes All Stones/Fragments Were Removed with a Basket: No Complications: No Preoperative Antibiotics Given: Yes Stent Placed: No Discharge Medications: Toradol as needed
[2024-03-27 12:31] VITALS: RESP 16
--- NOTE | 2024-03-27 13:05 | FL ---
Fluoroscopy INDICATION: Pain FINDINGS: Fluoroscopy time: 1.7 seconds. Total dose area product (DAP) in uGy*m?, mGy*cm? (or similar): 0.1570 Images obtained: 2. IMPRESSION: 1. Documentation of fluoroscopy.
[2024-03-27 13:36] VITALS: BP 134/86; PULSE 90
== END 2024-03-27 13:00 | disposition home or self-care (01) ==
LOC: OR 08:11
PROVIDERS: ATTEND Urology
DX: N13.2 Hydronephrosis with renal and ureteral calculous obstruction (principal); E07.9 Disorder of thyroid, unspecified; Z79.890 Hormone replacement therapy; Z90.49 Acquired absence of other specified parts of digestive tract; Z90.710 Acquired absence of both cervix and uterus
CPT/HCPCS: 52353; 82365; 74018; C1758 ×3; C1769; C1894; J2250; J0330; J1200; J1100; J0690; J2405; J2001; J3010; J2704

== ENCOUNTER → 2024-05-11 | Outpatient (CLI) | payer OTHER ==
--- NOTE | 2024-05-11 12:46 | US ---
EXAMINATION TYPE: US kidneys/renal and bladder DATE OF EXAM: 05/11/2024 COMPARISON: NONE CLINICAL INDICATION: Female, 38 years old with history of N13.2 RENAL AND URETERAL CALCULOUS OBSTRUCT ION; Hx of left stone removed 03/2024 EXAM MEASUREMENTS: Right Kidney: 9.8 x 4.3 x 4.1 cm Left Kidney: 11.2 x 5.7 x 4.1 cm Right Kidney: No hydronephrosis or masses seen Left Kidney: No hydronephrosis or masses seen Bladder: wnl Bilateral Jets seen: Yes IMPRESSION: No hydronephrosis.
== END | disposition home or self-care (01) ==
LOC: RADUSWWP 10:29
PROVIDERS: ATTEND Urology
DX: N13.2 Hydronephrosis with renal and ureteral calculous obstruction (principal); Z87.442 Personal history of urinary calculi
CPT/HCPCS: 76770

== ENCOUNTER → 2024-05-18 | Outpatient (CLI) | payer OTHER ==
--- NOTE | 2024-05-18 11:46 | CT ---
EXAMINATION TYPE: CT chest wo/w con DATE OF EXAM: 05/18/2024 COMPARISON: CT abdomen and pelvis dated 05/18/2024 HISTORY: Follow-up right lower lobe pulmonary nodule CT DLP: 574.4 mGycm Automated exposure control for dose reduction was used. TECHNIQUE: CT scan of the chest is performed without and with IV Contrast, patient injected with 100 mL of Isovu e 300. MIP Images are created on CT scanner and reviewed. 3D reconstructed images are created on an independent workstation and reviewed. FINDINGS: There is a right subpleural parenchymal pulmonary nodule which when measured in a similar fashion on the prior study and current study is stable at approximately 5.5 mm. No other suspicious lung masses or nodules are seen. There is no airspace consolidation or abnormal interstitial density. There is no pleural effusion or pneumothorax. The great vessels chest are normal and there is no mediastinal, hilar or axillary adenopathy. Limited scanning through the upper abdomen reveals cholecystectomy. No focal osseous lesions are seen . IMPRESSION: 1. Stable 5.5 mm right lower lobe subpleural parenchymal nodule. No other abnormality seen. If this i s a high risk patient then follow-up CT thorax in 6 months is recommended
== END | disposition home or self-care (01) ==
LOC: RADCTMAIN 10:28
PROVIDERS: ATTEND Family Medicine
DX: R91.1 Solitary pulmonary nodule (principal)
CPT/HCPCS: 71270

== ENCOUNTER → 2024-09-11 | Outpatient (CLI) | payer OTHER ==
[2024-09-11 15:39] LABS: T4, Free (Free Thyroxine) 1.13 ng/dL (0.80-1.80)
== END | disposition home or self-care (01) ==
LOC: LABWHC1 08:34
PROVIDERS: ATTEND Family Medicine
DX: E03.9 Hypothyroidism, unspecified (principal)
CPT/HCPCS: 36415; 82533; 84439; 84443

== ENCOUNTER → 2024-12-12 | Outpatient (CLI) | payer OTHER ==
--- NOTE | 2024-12-12 10:34 | CT ---
EXAMINATION TYPE: CT chest w con DATE OF EXAM: 12/12/2024 COMPARISON: Prior chest CT May 18, 2024 CLINICAL INDICATION: Female, 39 years old with history of R91.1 SOLITARY PULMONARY NODULE, Pulmonary nodule TECHNIQUE: CT scan of the thorax is performed following with IV Contrast, patient injected with 100 mL of Isovue 300. CT DLP: 508 mGycm. Automated Exposure Control for Dose Reduction was Utilized. FINDINGS: LUNGS: Stable 4 to 5 mm peripheral right lower lobe nodule axial image 32. Left lung remains clear. N o pleural effusion or pneumothorax seen bilaterally. HEART: Size within normal limits. No significant coronary artery calcifications. MEDIASTINUM: There are no greater than 1 cm hilar or mediastinal lymph nodes. No pericardial effusi on is seen. OTHER: Cholecystectomy clips are redemonstrated. IMPRESSION: Stable 4 to 5 mm peripheral right lower lobe nodule. No new or enlarging nodules. No sign ificant change from most recent prior CT. [facility], , 12/12/2024 10:32 AM
== END | disposition home or self-care (01) ==
LOC: RADCTMAIN 08:32
PROVIDERS: ATTEND Internal Medicine Critical Care Medicine
DX: R91.1 Solitary pulmonary nodule (principal)
CPT/HCPCS: 71260; Q9967